=== PATIENT | female | born 1980 | race Caucasian/White ===

== ENCOUNTER 2021-05-02 16:09 | Emergency (ER) | payer OTHER, SELFPAY ==
--- NOTE | ~2021-05-02 | XR_ITS ---
EXAMINATION: XR ANKLE, LEFT. XR FOOT, LEFT. CLINICAL INFORMATION: Injury COMPARISON: None TECHNIQUE: 3 views of the left ankle. 3 views of the left foot. FINDINGS: Normal alignment. No fracture. The ankle mortise is preserved. No radiopaque foreign body. There is a prominent heel spur. XR/XR foot LT min 3V IMPRESSION: No acute fracture or dislocation.
--- NOTE | ~2021-05-02 | XR_ITS ---
EXAMINATION: XR ANKLE, LEFT. XR FOOT, LEFT. CLINICAL INFORMATION: Injury COMPARISON: None TECHNIQUE: 3 views of the left ankle. 3 views of the left foot. FINDINGS: Normal alignment. No fracture. The ankle mortise is preserved. No radiopaque foreign body. There is a prominent heel spur. XR/XR ankle LT min 3V IMPRESSION: No acute fracture or dislocation.
[2021-05-02 16:18] VITALS: BP 149/91; PULSE 85; RESP 16; TEMP 36.5; O2SAT 97; BMI 54.1
--- NOTE | 2021-05-02 16:44 | ED.LOWEXIN ---
HPI - Extremity Injury (Lower) General Chief Complaint: Extremity Injury, Lower Stated Complaint: fall - foot inj Time Seen by Provider: 05/02/21 16:44 History of Present Illness HPI Narrative: patient complains of left foot and ankle pain after twisting it today, no other injury no numbness weakness or tingling Related Data Previous Rx's Medication Instructions Recorded acetaminophen 500 mg tablet 1,000 mg PO QID PRN #30 tab 05/02/21 ibuprofen 600 mg tablet 600 mg PO Q6H PRN #20 tab 05/02/21 Allergies Allergy/AdvReac Type Severity Reaction Status Date / Time acetaminophen [From Vicodin] Allergy Difficulty Verified 05/02/21 16:18 Breathing hydrocodone [From Vicodin] Allergy Difficulty Verified 05/02/21 16:18 Breathing Review of Systems Review of Systems: Positive for left foot and ankle pain and swelling Negatives are no headache no head injury no neck pain no back pain no numbness weakness or tingling no other extremity injury Yes all other systems are reviewed and are negative PMFSH Past Medical History Source: nursing notes reviewed Medical History (Updated 05/03/21 @ 00:01 by Clayton Preston) Asthma Obesity Social History Social History Advance Directives: No Advance Directives Information Provided: Yes Patient : No Physical Exam Vital Signs: Vital Signs: Last Vital Signs Temp 97.7 F 05/02/21 16:18 Pulse 85 05/02/21 16:18 Resp 16 05/02/21 16:18 BP 149/91 H 05/02/21 16:18 Pulse Ox 97 05/02/21 16:18 Body Mass Index 54.1 General appearance no acute distress Head is normocephalic atraumatic Neck is supple Respiratory no distress Extremities the left ankle had tenderness and swelling around lateral malleolus, neurovascular intact distal, skin intact no wounds or lacerations Other extremities normal Neuro no focal motor or sensory deficit Course Course Course Narrative: X-rays of left foot and left ankle did not reveal any fractures or acute conditions and patient is discharged with symptomatic treatment and follow with Orthopedics if needed Discharge Plan Discharge Clinical Impression: Left ankle sprain Patient Disposition: Home, Self-Care Additional Instructions: no broken bone was seen on the x-ray Usually patients are limping comfortably within a few days and get better relatively quickly with ankle sprain, but if it is not getting better follow with orthopedist or primary care doctor for further evaluation Return any time any worse condition or any concerns Prescriptions: New acetaminophen 500 mg tablet 1,000 mg PO QID PRN (Reason: pain) Qty: 30 RF: 0 ibuprofen 600 mg tablet 600 mg PO Q6H PRN (Reason: pain) Qty: 20 RF: 0 Referrals: Cindy Aguilar MD [Physician] - 2 days Interventions: ED Discharge Assessment Last Done: 05/02/21 17:58 Discharge Date/Time: 05/02/21 18:00
== END 2021-05-02 18:00 | disposition home or self-care (01) ==
PROVIDERS: Emergency Provider Emergency Medicine Emergency Medical Services
DX: S93.402A Sprain of unspecified ligament of left ankle, initial encounter (principal); X50.1XXA Overexertion from prolonged static or awkward postures, initial encounter; Y93.9 Activity, unspecified; Y92.9 Unspecified place or not applicable; Y99.9 Unspecified external cause status
CPT/HCPCS: 73610; 73630; 99283; 99284